=== PATIENT | male | born 1995 | race Caucasian/White ===

== ENCOUNTER → 2023-09-17 | Outpatient (CLI) | payer OTHER, SELFPAY ==
--- NOTE | 2023-09-17 15:21 | ECHOD_ITS ---
Reason For Study: DYSPNEA Procedure This was a 2D Doppler, Color Flow transthoracic echocardiogram. Exam performed in department. Left Ventricle Normal LV size. Left ventricular systolic function is normal. The left ventricular ejection fraction is 60 %. No regional wall motion abnormalities noted. Right Ventricle Normal RV size. Normal systolic function. Atria Normal left atrium. Normal right atrium. Mitral Valve Normal mitral valve. Tricuspid Valve Normal tricuspid valve. Aortic Valve Trisinus/trileaflet aortic valve. Pulmonic Valve Normal pulmonic valve. Great Vessels Normal aortic root. The pulmonary artery is normal size. Normal inferior vena cava. Pericardium/Pleural No pericardial effusion. MMode/2D Measurements & Calculations LVIDd: 5.1 cm IVSd: 1.0 cm LVOT diam: 2.3 cm LVIDs: 3.4 cm LVPWd: 0.78 cm LVOT area: 4.2 cm2 RVDd: 3.8 cm FS: 34.2 % Ao root diam: 3.4 cm LAV(MOD-bp): 48.2 ml LVAd ap4: 35.7 cm2 LAV(MOD-bp) Indexed: 23.6 ml/m2 LVLd ap4: 8.9 cm LAV(MOD-sp2): 45.7 ml EDV(MOD-sp4): 118.4 ml LAV(MOD-sp4): 46.5 ml EDV(sp4-el): 122.2 ml LVAs ap4: 20.1 cm2 LVLs ap4: 7.5 cm ESV(MOD-sp4): 44.8 ml ESV(sp4-el): 45.7 ml EF(MOD-sp4): 62.1 % EF(sp4-el): 62.6 % LVAd ap2: 34.7 cm2 SV(MOD-sp4): 73.6 ml SV(MOD-sp2): 67.9 ml LVLd ap2: 8.9 cm EDV(MOD-sp2): 111.6 ml EDV(sp2-el): 114.5 ml LVAs ap2: 19.3 cm2 LVLs ap2: 7.2 cm ESV(MOD-sp2): 43.7 ml ESV(sp2-el): 43.9 ml EF(MOD-sp2): 60.8 % SV(sp4-el): 76.6 ml LA dimension(2D): 3.8 cm LA A4 area: 17.7 cm2 RA A4 area: 12.1 cm2 TAPSE: 2.2 cm Time Measurements MV dec time: 0.13 sec Doppler Measurements & Calculations MV E max travis: 88.6 cm/sec Lat Peak E' Travis: 23.6 cm/sec Med Peak E' Travis: 15.0 cm/sec MV A max travis: 53.4 cm/sec E/E' lat: 3.8 E/E' med: 5.9 MV E/A: 1.7 Ao V2 max: 118.8 cm/sec LV V1 max: 107.9 cm/sec MV dec slope: 678.7 cm/sec2 Ao max P.6 mmHg LV V1 max P.7 mmHg Ao V2 mean: 83.0 cm/sec LV V1 mean P.4 mmHg Ao mean P.2 mmHg LV V1 mean: 72.5 cm/sec Ao V2 VTI: 23.9 cm LV V1 VTI: 20.1 cm AV (velocity ratio): 0.84 CACHORRO(I,D): 3.5 cm2 CACHORRO(V,D): 3.8 cm2 SV(LVOT): 83.5 ml PA V2 max: 108.8 cm/sec PI end-d travis: 75.9 cm/sec PA max PG (full): 3.1 mmHg ECHO/Echo Complete Interpretation Summary Normal LV size. Left ventricular systolic function is normal. The left ventricular ejection fraction is 60 %. Structurally normal valves. Ordering Physician: Giselle Porras Referring Physician: Giselle Porras Performed By: Molly Dill RDCS and Student
--- NOTE | 2023-09-17 15:50 | RAD_ITS ---
STUDY: X-RAY CHEST REASON FOR EXAM: Male, 28 years old. SOB TECHNIQUE: PA and lateral views of the chest. COMPARISON: None. FINDINGS: The lungs are clear and expanded. There is no demonstrated pleural abnormality. Normal size heart. Normal mediastinum and max. Normal visualized pulmonary arteries. Normal visualized aortic arch and descending thoracic aorta. Normal visualized thoracic spine. Normal visualized ribs, clavicles, and shoulders. There is no demonstrated abnormality of the visualized soft tissue structures of the upper abdomen. RAD/Chest PA and Lateral IMPRESSION: Normal x-ray examination of the chest. Electronically Signed: Telly Pederson MD at 10:20 EDT ,
== END | disposition home or self-care (01) ==
PROVIDERS: PCP Family Medicine; Referring Provider Nurse Practitioner Family; Visit Provider Nurse Practitioner Family
DX: R06.02 Shortness of breath (principal)
CPT/HCPCS: 71046; 93306